=== PATIENT | male | born 1975 | race Caucasian/White ===

== ENCOUNTER 2020-05-22 15:11 | Inpatient (IN) | payer OTHER ==
[2020-05-22 16:22] VITALS: BMI 17.7
[2020-05-22] MEDS ORDERED: MAG HYDROX/AL HYDROX/SIMETH 30 ML UNIT-DOSE CUP PO PRN (16:48)
[2020-05-22] MEDS ORDERED: ACETAMINOPHEN 325 MG TABLET (FP) PO PRN ×2 (16:48)
[2020-05-22] MEDS ORDERED: ONDANSETRON *ODT* 4 MG TABLET SL PRN (16:48)
[2020-05-22] MEDS ORDERED: BISMUTH SUBSALICYLATE 524 MG/30 ML UD PO PRN (16:48)
[2020-05-22] MEDS ORDERED: MENTHOL/PHENOL 1 EACH UD MM PRN (16:48)
[2020-05-22] MEDS ORDERED: MAGNESIUM HYDROX 2400MG/30ML ORAL SUSPENSION 30 ML CUP PO PRN (16:48)
[2020-05-22] MEDS ORDERED: MAGNESIUM CITRATE 300 ML BOTTLE PO PRN (16:48)
[2020-05-22] MEDS ORDERED: IBUPROFEN 400 MG TABLET (FP) PO PRN (16:48)
[2020-05-22] MEDS ORDERED: chlordiazePOXIDE HCL 25 MG CAPSULE PO PRN (16:48)
[2020-05-22] MEDS: chlordiazePOXIDE HCL 25 MG CAPSULE PO SCH ×2 (18:15→22:21)
[2020-05-22] MEDS: hydrOXYzine PAMOATE 25 MG CAPSULE (FP) PO SCH ×2 (18:15→22:21)
[2020-05-22] MEDS: MELATONIN 5 MG TABLETS PO SCH (22:21)
[2020-05-22] MEDS: THIAMINE HCL 100 MG TABLET (FP) PO SCH (22:21)
[2020-05-23] MEDS: hydrOXYzine PAMOATE 25 MG CAPSULE (FP) PO SCH ×5 (05:53→21:59)
[2020-05-23] MEDS: chlordiazePOXIDE HCL 25 MG CAPSULE PO SCH ×4 (05:53→21:59)
[2020-05-23] MEDS: METHOCARBAMOL 500 MG TABLET PO PRN ×2 (07:41→22:00)
[2020-05-23] MEDS ORDERED: cloNIDine HCL 0.1 MG TABLET PO PRN (08:20)
[2020-05-23] MEDS ORDERED: METHADONE HCL 10 MG TABLET (FOR DETOX USE ONLY) PO ONE (09:00)
[2020-05-23] MEDS: PRENATAL VITAMINS W/ FOLIC ACID TABLET (FP) PO SCH (10:08)
[2020-05-23 10:49] LABS: HEMATOCRIT 42.6 % (35.4-49); HEMOGLOBIN 14.2 GM/dL (11.7-16.9); MCH 31.2 pg (25.7-33.7); MCHC 33.4 g/dl (32.0-35.9); MEAN CELL VOLUME 93.5 fl (80-96); MEAN PLT VOLUME 9.7 fl (7.5-11.1); PLATELET COUNT 143 K/MM3 (134-434); RBC 4.55 M/mm3 (4.00-5.60); RDW 13.4 % (11.9-15.9); WHITE BLOOD COUNT 5.3 K/mm3 (4.0-10.0)
[2020-05-23 10:52] LABS: POTASSIUM 3.7 mmol/L (3.5-5.1)
[2020-05-23 11:04] LABS: CALCIUM 8.4 mg/dL (8.5-10.1)
[2020-05-23 11:05] LABS: BLOOD UREA NITROGEN 8.1 mg/dL (7-18)
[2020-05-23 11:08] LABS: CREATININE 0.8 mg/dL (0.55-1.3)
[2020-05-23 11:09] LABS: BILIRUBIN,TOTAL 1.6 mg/dL (0.2-1)
[2020-05-23 11:10] LABS: TOT PROT 6.3 g/dl (6.4-8.2)
[2020-05-23] MEDS: THIAMINE HCL 100 MG TABLET (FP) PO SCH (22:00)
[2020-05-23] MEDS: MELATONIN 5 MG TABLETS PO SCH (22:00)
[2020-05-24] MEDS: chlordiazePOXIDE HCL 25 MG CAPSULE PO SCH ×4 (05:58→22:21)
[2020-05-24] MEDS: hydrOXYzine PAMOATE 25 MG CAPSULE (FP) PO SCH ×5 (05:59→22:21)
[2020-05-24] MEDS: METHOCARBAMOL 500 MG TABLET PO PRN ×2 (05:59→17:20)
[2020-05-24] MEDS ORDERED: METHADONE (DETOX) 20 MG, METHADONE (DETOX) 5 MG PO ONE (10:00)
[2020-05-24] MEDS ORDERED: METHADONE HCL 10 MG TABLET (FOR DETOX USE ONLY) ONE (10:01)
[2020-05-24] MEDS ORDERED: METHADONE HCL 5 MG TABLET (FOR DETOX USE ONLY) ONE (10:01)
[2020-05-24] MEDS: PRENATAL VITAMINS W/ FOLIC ACID TABLET (FP) PO SCH (10:18)
[2020-05-24] MEDS: THIAMINE HCL 100 MG TABLET (FP) PO SCH (22:21)
[2020-05-24] MEDS: MELATONIN 5 MG TABLETS PO SCH (22:21)
[2020-05-25] MEDS ORDERED: chlordiazePOXIDE HCL 10 MG CAPSULE PO PRN
[2020-05-25] MEDS: chlordiazePOXIDE HCL 10 MG CAPSULE PO SCH ×4 (06:13→22:15)
[2020-05-25] MEDS: hydrOXYzine PAMOATE 25 MG CAPSULE (FP) PO SCH ×5 (06:14→22:14)
[2020-05-25] MEDS: METHOCARBAMOL 500 MG TABLET PO PRN ×2 (06:15→14:26)
[2020-05-25 07:08] LABS: SARS-CoV-2 NAA Not Detected (Not Detected)
[2020-05-25] MEDS ORDERED: METHADONE HCL 10 MG TABLET (FOR DETOX USE ONLY) PO ONE (10:00)
[2020-05-25] MEDS: PRENATAL VITAMINS W/ FOLIC ACID TABLET (FP) PO SCH (10:09)
[2020-05-25] MEDS: THIAMINE HCL 100 MG TABLET (FP) PO SCH (22:14)
[2020-05-25] MEDS: MELATONIN 5 MG TABLETS PO SCH (22:14)
[2020-05-26] MEDS ORDERED: chlordiazePOXIDE HCL 10 MG CAPSULE PO SCH (05:00)
[2020-05-26] MEDS: hydrOXYzine PAMOATE 25 MG CAPSULE (FP) PO SCH ×3 (06:45→13:34)
[2020-05-26] MEDS ORDERED: METHADONE HCL 5 MG TABLET (FOR DETOX USE ONLY) ONE (08:55)
[2020-05-26] MEDS ORDERED: METHADONE HCL 10 MG TABLET (FOR DETOX USE ONLY) ONE (08:55)
[2020-05-26] MEDS: PRENATAL VITAMINS W/ FOLIC ACID TABLET (FP) PO SCH (09:37)
[2020-05-26] MEDS: METHOCARBAMOL 500 MG TABLET PO PRN (09:39)
[2020-05-26] MEDS ORDERED: METHADONE (DETOX) 10 MG, METHADONE (DETOX) 5 MG PO ONE (10:00)
[2020-05-26 14:02] VITALS: BP 101/71; PULSE 100; TEMP 97.5
[2020-05-27] MEDS ORDERED: chlordiazePOXIDE HCL 10 MG CAPSULE PO ONE (05:00)
[2020-05-27] MEDS ORDERED: METHADONE HCL 10 MG TABLET (FOR DETOX USE ONLY) PO ONE (10:00)
[2020-05-28] MEDS ORDERED: METHADONE HCL 5 MG TABLET (FOR DETOX USE ONLY) PO ONE (06:00)
== END 2020-05-26 14:58 | disposition home or self-care (01) | DRG 773 ==
LOC: YASAS 15:11 → Y3N 17:24
PROVIDERS: ADMIT Allergy & Immunology; ATTEND Allergy & Immunology
PROC: HZ2ZZZZ Detoxification Services for Substance Abuse Treatment (ICD-10-PCS; principal; 2020-05-22)
DX: F11.23 Opioid dependence with withdrawal (principal); F14.20 Cocaine dependence, uncomplicated; F13.20 Sedative, hypnotic or anxiolytic dependence, uncomplicated; F16.20 Hallucinogen dependence, uncomplicated; F17.211 Nicotine dependence, cigarettes, in remission; R63.4 Abnormal weight loss; Z68.1 Body mass index [BMI] 19.9 or less, adult
CPT/HCPCS: 36415; 80053; 85027; 86780; 93005; 93010; C9803; U0003; U0005

== ENCOUNTER 2020-06-18 10:17 | Inpatient (IN) | payer OTHER ==
[2020-06-18 11:35] VITALS: BMI 25.4
[2020-06-18] MEDS ORDERED: chlordiazePOXIDE HCL 25 MG CAPSULE PO PRN (13:21)
[2020-06-18] MEDS ORDERED: ACETAMINOPHEN 325 MG TABLET (FP) PO PRN (13:21)
[2020-06-18] MEDS ORDERED: BISMUTH SUBSALICYLATE 524 MG/30 ML UD PO PRN (13:21)
[2020-06-18] MEDS ORDERED: MAGNESIUM HYDROX 2400MG/30ML ORAL SUSPENSION 30 ML CUP PO PRN (13:21)
[2020-06-18] MEDS ORDERED: ONDANSETRON *ODT* 4 MG TABLET SL PRN (13:21)
[2020-06-18] MEDS ORDERED: cloNIDine HCL 0.1 MG TABLET PO PRN (13:21)
[2020-06-18] MEDS ORDERED: NICOTINE POLACRILEX 2 MG GUM BUC PRN (13:21)
[2020-06-18] MEDS ORDERED: MENTHOL/PHENOL 1 EACH UD MM PRN (13:21)
[2020-06-18] MEDS ORDERED: MAGNESIUM CITRATE 300 ML BOTTLE PO PRN (13:21)
[2020-06-18] MEDS ORDERED: IBUPROFEN 400 MG TABLET (FP) PO PRN (13:21)
[2020-06-18] MEDS ORDERED: MAG HYDROX/AL HYDROX/SIMETH 30 ML UNIT-DOSE CUP PO PRN (13:21)
[2020-06-18] MEDS ORDERED: METHADONE HCL 10 MG TABLET (FOR DETOX USE ONLY) PO ONE (13:45)
[2020-06-18] MEDS: NICOTINE 14 MG/24 HOURS TOPICAL PATCH TD SCH (14:01)
[2020-06-18] MEDS: PRENATAL VITAMINS W/ FOLIC ACID TABLET (FP) PO SCH (14:01)
[2020-06-18] MEDS: hydrOXYzine PAMOATE 25 MG CAPSULE (FP) PO SCH ×3 (14:01→22:40)
[2020-06-18 17:18] LABS: HEMATOCRIT 41.3 % (35.4-49); HEMOGLOBIN 13.9 GM/dL (11.7-16.9); MCH 31.5 pg (25.7-33.7); MCHC 33.6 g/dl (32.0-35.9); MEAN CELL VOLUME 93.8 fl (80-96); MEAN PLT VOLUME 10.1 fl (7.5-11.1); PLATELET COUNT 153 K/MM3 (134-434); RDW 13.1 % (11.9-15.9); WHITE BLOOD COUNT 5.4 K/mm3 (4.0-10.0)
[2020-06-18 17:20] LABS: ALBUMIN 3.5 g/dl (3.4-5.0); BLOOD UREA NITROGEN 12.1 mg/dL (7-18); CALCIUM 8.6 mg/dL (8.5-10.1)
[2020-06-18 17:23] LABS: CREATININE 0.9 mg/dL (0.55-1.3)
[2020-06-18 17:25] LABS: BILIRUBIN,TOTAL 0.7 mg/dL (0.2-1)
[2020-06-18] MEDS: chlordiazePOXIDE HCL 25 MG CAPSULE PO SCH ×2 (17:32→22:40)
[2020-06-18] MEDS: MELATONIN 5 MG TABLETS PO SCH (22:41)
[2020-06-18] MEDS: THIAMINE HCL 100 MG TABLET (FP) PO SCH (22:41)
[2020-06-19] MEDS: hydrOXYzine PAMOATE 25 MG CAPSULE (FP) PO SCH ×5 (06:20→22:49)
[2020-06-19] MEDS: chlordiazePOXIDE HCL 25 MG CAPSULE PO SCH ×4 (06:20→22:49)
[2020-06-19] MEDS: ACETAMINOPHEN 325 MG TABLET (FP) PO PRN (06:30)
[2020-06-19] MEDS ORDERED: METHADONE HCL 5 MG TABLET (FOR DETOX USE ONLY) ONE (09:09)
[2020-06-19] MEDS ORDERED: METHADONE HCL 10 MG TABLET (FOR DETOX USE ONLY) ONE (09:09)
[2020-06-19] MEDS ORDERED: METHADONE (DETOX) 20 MG, METHADONE (DETOX) 5 MG PO ONE (10:00)
[2020-06-19] MEDS: NICOTINE 14 MG/24 HOURS TOPICAL PATCH TD SCH (11:51)
[2020-06-19] MEDS: PRENATAL VITAMINS W/ FOLIC ACID TABLET (FP) PO SCH (11:52)
[2020-06-19] MEDS: GABAPENTIN 400 MG CAPSULE PO SCH ×2 (14:16→22:49)
[2020-06-19] MEDS: ZIPRASIDONE 20 MG CAPSULE PO SCH ×2 (14:16→22:47)
[2020-06-19] MEDS: THIAMINE HCL 100 MG TABLET (FP) PO SCH (22:47)
[2020-06-19] MEDS: MELATONIN 5 MG TABLETS PO SCH (22:48)
[2020-06-20] MEDS: chlordiazePOXIDE HCL 25 MG CAPSULE PO SCH ×4 (06:02→22:48)
[2020-06-20] MEDS: hydrOXYzine PAMOATE 25 MG CAPSULE (FP) PO SCH ×5 (06:02→22:48)
[2020-06-20] MEDS: GABAPENTIN 400 MG CAPSULE PO SCH ×3 (06:02→22:48)
[2020-06-20] MEDS: ACETAMINOPHEN 325 MG TABLET (FP) PO PRN (06:20)
[2020-06-20] MEDS ORDERED: METHADONE HCL 10 MG TABLET (FOR DETOX USE ONLY) PO ONE (10:00)
[2020-06-20] MEDS: PRENATAL VITAMINS W/ FOLIC ACID TABLET (FP) PO SCH (10:33)
[2020-06-20] MEDS: ZIPRASIDONE 20 MG CAPSULE PO SCH ×2 (10:33→22:47)
[2020-06-20] MEDS: NICOTINE 14 MG/24 HOURS TOPICAL PATCH TD SCH (10:39)
[2020-06-20] MEDS: MELATONIN 5 MG TABLETS PO SCH (22:48)
[2020-06-20] MEDS: THIAMINE HCL 100 MG TABLET (FP) PO SCH (22:48)
[2020-06-21] MEDS ORDERED: chlordiazePOXIDE HCL 10 MG CAPSULE PO PRN
[2020-06-21 06:09] LABS: SARS-CoV-2 NAA Not Detected (Not Detected)
[2020-06-21] MEDS: hydrOXYzine PAMOATE 25 MG CAPSULE (FP) PO SCH ×5 (06:11→21:44)
[2020-06-21] MEDS: GABAPENTIN 400 MG CAPSULE PO SCH ×3 (06:11→21:44)
[2020-06-21] MEDS: chlordiazePOXIDE HCL 10 MG CAPSULE PO SCH ×4 (06:12→22:29)
[2020-06-21] MEDS ORDERED: METHADONE HCL 5 MG TABLET (FOR DETOX USE ONLY) ONE (08:50)
[2020-06-21] MEDS ORDERED: METHADONE HCL 10 MG TABLET (FOR DETOX USE ONLY) ONE (08:51)
[2020-06-21] MEDS ORDERED: METHADONE (DETOX) 10 MG, METHADONE (DETOX) 5 MG PO ONE (10:00)
[2020-06-21] MEDS: ZIPRASIDONE 20 MG CAPSULE PO SCH ×2 (10:01→21:44)
[2020-06-21] MEDS: PRENATAL VITAMINS W/ FOLIC ACID TABLET (FP) PO SCH (10:02)
[2020-06-21] MEDS: NICOTINE 14 MG/24 HOURS TOPICAL PATCH TD SCH (10:02)
[2020-06-21] MEDS: MELATONIN 5 MG TABLETS PO SCH (21:44)
[2020-06-21] MEDS: THIAMINE HCL 100 MG TABLET (FP) PO SCH (21:44)
[2020-06-22] MEDS: chlordiazePOXIDE HCL 10 MG CAPSULE PO SCH ×2 (06:52→17:32)
[2020-06-22] MEDS: hydrOXYzine PAMOATE 25 MG CAPSULE (FP) PO SCH ×5 (06:53→23:15)
[2020-06-22] MEDS: GABAPENTIN 400 MG CAPSULE PO SCH ×3 (06:53→23:15)
[2020-06-22] MEDS ORDERED: METHADONE HCL 10 MG TABLET (FOR DETOX USE ONLY) PO ONE (10:00)
[2020-06-22] MEDS: NICOTINE 14 MG/24 HOURS TOPICAL PATCH TD SCH (10:45)
[2020-06-22] MEDS: PRENATAL VITAMINS W/ FOLIC ACID TABLET (FP) PO SCH (10:46)
[2020-06-22] MEDS: ZIPRASIDONE 20 MG CAPSULE PO SCH ×2 (10:46→23:24)
[2020-06-22] MEDS: METHOCARBAMOL 500 MG TABLET PO PRN (10:52)
[2020-06-22] MEDS: MELATONIN 5 MG TABLETS PO SCH (23:16)
[2020-06-22] MEDS: THIAMINE HCL 100 MG TABLET (FP) PO SCH (23:16)
[2020-06-23] MEDS ORDERED: chlordiazePOXIDE HCL 10 MG CAPSULE PO ONE (05:00)
[2020-06-23] MEDS ORDERED: METHADONE HCL 5 MG TABLET (FOR DETOX USE ONLY) PO ONE (06:00)
[2020-06-23] MEDS: GABAPENTIN 400 MG CAPSULE PO SCH ×3 (06:43→23:18)
[2020-06-23] MEDS: hydrOXYzine PAMOATE 25 MG CAPSULE (FP) PO SCH ×5 (06:48→23:18)
[2020-06-23] MEDS: METHOCARBAMOL 500 MG TABLET PO PRN (07:21)
[2020-06-23] MEDS: ZIPRASIDONE 20 MG CAPSULE PO SCH ×2 (10:37→23:19)
[2020-06-23] MEDS: PRENATAL VITAMINS W/ FOLIC ACID TABLET (FP) PO SCH (10:38)
[2020-06-23] MEDS: NICOTINE 14 MG/24 HOURS TOPICAL PATCH TD SCH (10:38)
[2020-06-23] MEDS: THIAMINE HCL 100 MG TABLET (FP) PO SCH (23:18)
[2020-06-23] MEDS: MELATONIN 5 MG TABLETS PO SCH (23:18)
[2020-06-24] MEDS: GABAPENTIN 400 MG CAPSULE PO SCH ×3 (07:39→22:53)
[2020-06-24] MEDS: hydrOXYzine PAMOATE 25 MG CAPSULE (FP) PO SCH ×2 (07:39→10:36)
[2020-06-24] MEDS: METHOCARBAMOL 500 MG TABLET PO PRN (07:43)
[2020-06-24] MEDS: ZIPRASIDONE 20 MG CAPSULE PO SCH ×2 (10:36→22:53)
[2020-06-24] MEDS: NICOTINE 14 MG/24 HOURS TOPICAL PATCH TD SCH (10:36)
[2020-06-24] MEDS: PRENATAL VITAMINS W/ FOLIC ACID TABLET (FP) PO SCH (10:36)
[2020-06-24] MEDS: MELATONIN 5 MG TABLETS PO SCH (22:53)
[2020-06-24] MEDS: THIAMINE HCL 100 MG TABLET (FP) PO SCH (22:53)
[2020-06-25] MEDS: GABAPENTIN 400 MG CAPSULE PO SCH (06:08)
[2020-06-25] MEDS: NICOTINE 14 MG/24 HOURS TOPICAL PATCH TD SCH (11:24)
[2020-06-25] MEDS: PRENATAL VITAMINS W/ FOLIC ACID TABLET (FP) PO SCH (11:24)
[2020-06-25] MEDS: ZIPRASIDONE 20 MG CAPSULE PO SCH (11:24)
[2020-06-25 13:25] VITALS: BP 143/97; PULSE 90; TEMP 98.1
== END 2020-06-25 13:11 | disposition home or self-care (01) | DRG 773 ==
LOC: YASAS 10:17 → Y6N 13:04
PROVIDERS: ADMIT Allergy & Immunology; ATTEND Allergy & Immunology
PROC: HZ2ZZZZ Detoxification Services for Substance Abuse Treatment (ICD-10-PCS; principal; 2020-06-18)
DX: F11.23 Opioid dependence with withdrawal (principal); F10.230 Alcohol dependence with withdrawal, uncomplicated; F13.20 Sedative, hypnotic or anxiolytic dependence, uncomplicated; F14.20 Cocaine dependence, uncomplicated; F12.20 Cannabis dependence, uncomplicated; F17.210 Nicotine dependence, cigarettes, uncomplicated; F19.24 Other psychoactive substance dependence with psychoactive substance-induced mood disorder; F31.9 Bipolar disorder, unspecified; F43.10 Post-traumatic stress disorder, unspecified; U07.1 COVID-19; Z59.0 Homelessness; Z91.011 Allergy to milk products
CPT/HCPCS: 36415; 80053; 85027; 86780; C9803; U0003; U0005

== ENCOUNTER 2020-09-09 08:47 | Inpatient (IN) | payer OTHER ==
[2020-09-09 10:45] VITALS: BMI 27.1
[2020-09-09] MEDS ORDERED: ACETAMINOPHEN 325 MG TABLET (FP) PO PRN ×2 (10:48)
[2020-09-09] MEDS ORDERED: ONDANSETRON *ODT* 4 MG TABLET SL PRN (10:48)
[2020-09-09] MEDS ORDERED: METHOCARBAMOL 500 MG TABLET PO PRN (10:48)
[2020-09-09] MEDS ORDERED: BISMUTH SUBSALICYLATE 524 MG/30 ML PO PRN (10:48)
[2020-09-09] MEDS ORDERED: MAG HYDROX/AL HYDROX/SIMETH 30 ML UNIT-DOSE CUP PO PRN (10:48)
[2020-09-09] MEDS ORDERED: MAGNESIUM CITRATE 300 ML BOTTLE PO PRN (10:48)
[2020-09-09] MEDS ORDERED: IBUPROFEN 400 MG TABLET (FP) PO PRN (10:48)
[2020-09-09] MEDS ORDERED: MAGNESIUM HYDROX 2400MG/30ML ORAL SUSPENSION 30 ML CUP PO PRN (10:48)
[2020-09-09] MEDS ORDERED: MENTHOL/PHENOL 1 EACH UD MM PRN (10:48)
[2020-09-09] MEDS ORDERED: diazePAM 5 MG TABLET PO PRN (10:50)
[2020-09-09] MEDS: MELATONIN 5 MG TABLETS PO SCH (23:04)
[2020-09-09] MEDS: hydrOXYzine PAMOATE 25 MG CAPSULE (FP) PO PRN (23:04)
[2020-09-09] MEDS: THIAMINE HCL 100 MG TABLET (FP) PO SCH (23:04)
[2020-09-10] MEDS: BACITRACIN 0.9 GM PACKET TP SCH ×3 (00:07→21:03)
[2020-09-10] MEDS ORDERED: methaDONE HCL 40 MG DISPERSABLE TABLET ONE (09:19)
[2020-09-10] MEDS ORDERED: methaDONE HCL 10 MG TABLET ONE (09:19)
[2020-09-10] MEDS ORDERED: methaDONE 40 MG, methaDONE 30 MG PO ONE (10:00)
[2020-09-10] MEDS ORDERED: methaDONE HCL 10 MG TABLET PO ONE (10:00)
[2020-09-10] MEDS: PRENATAL VITAMINS W/ FOLIC ACID TABLET (FP) PO SCH (10:13)
[2020-09-10] MEDS: diazePAM 5 MG TABLET PO SCH ×3 (10:13→22:50)
[2020-09-10 10:19] LABS: HEMATOCRIT 39.6 % (35.4-49); HEMOGLOBIN 13.4 GM/dL (11.7-16.9); MCH 30.5 pg (25.7-33.7); MCHC 33.8 g/dl (32.0-35.9); MEAN CELL VOLUME 90.1 fl (80-96); MEAN PLT VOLUME 9.2 fl (7.5-11.1); PLATELET COUNT 108 10^3/uL (134-434); RDW 14.8 % (11.9-15.9); WHITE BLOOD COUNT 3.5 K/mm3 (4.0-10.0)
[2020-09-10 10:23] LABS: CALCIUM 8.5 mg/dL (8.5-10.1)
[2020-09-10 10:24] LABS: ALBUMIN 3.2 g/dl (3.4-5.0); BLOOD UREA NITROGEN 17.3 mg/dL (7-18)
[2020-09-10 10:29] LABS: BILIRUBIN,TOTAL 0.7 mg/dL (0.2-1); TOT PROT 6.4 g/dl (6.4-8.2)
[2020-09-10] MEDS: ZIPRASIDONE 40 MG CAPSULE PO SCH ×2 (11:25→17:46)
[2020-09-10] MEDS: diazePAM 5 MG TABLET PO PRN ×2 (13:46→21:02)
[2020-09-10] MEDS: GABAPENTIN 400 MG CAPSULE PO SCH ×2 (13:46→21:02)
[2020-09-10] MEDS: hydrOXYzine PAMOATE 25 MG CAPSULE (FP) PO PRN (21:02)
[2020-09-10] MEDS: THIAMINE HCL 100 MG TABLET (FP) PO SCH (21:03)
[2020-09-10] MEDS: MELATONIN 5 MG TABLETS PO SCH (22:50)
[2020-09-11] MEDS: diazePAM 5 MG TABLET PO PRN (03:19)
[2020-09-11] MEDS ORDERED: methaDONE HCL 10 MG TABLET ONE (04:06)
[2020-09-11] MEDS ORDERED: methaDONE HCL 40 MG DISPERSABLE TABLET ONE (04:06)
[2020-09-11] MEDS: methaDONE 40 MG, methaDONE 30 MG PO SCH (05:53)
[2020-09-11] MEDS: GABAPENTIN 400 MG CAPSULE PO SCH ×2 (05:55→14:52)
[2020-09-11] MEDS ORDERED: methaDONE HCL 10 MG TABLET PO SCH (06:00)
[2020-09-11] MEDS ORDERED: diazePAM 5 MG TABLET PO SCH (06:00)
[2020-09-11] MEDS: ZIPRASIDONE 40 MG CAPSULE PO SCH ×2 (07:09→17:06)
[2020-09-11] MEDS: PRENATAL VITAMINS W/ FOLIC ACID TABLET (FP) PO SCH (10:36)
[2020-09-11] MEDS: BACITRACIN 0.9 GM PACKET TP SCH ×2 (10:37→22:24)
[2020-09-11] MEDS: diazePAM 5 MG TABLET PO SCH ×2 (15:19→22:25)
[2020-09-11] MEDS: THIAMINE HCL 100 MG TABLET (FP) PO SCH (22:24)
[2020-09-11] MEDS: MELATONIN 5 MG TABLETS PO SCH (22:24)
[2020-09-12] MEDS ORDERED: methaDONE HCL 40 MG DISPERSABLE TABLET ONE (04:12)
[2020-09-12] MEDS ORDERED: methaDONE HCL 10 MG TABLET ONE (04:12)
[2020-09-12] MEDS ORDERED: diazePAM 5 MG TABLET PO SCH (06:00)
[2020-09-12] MEDS: methaDONE 40 MG, methaDONE 30 MG PO SCH (06:07)
[2020-09-12] MEDS: diazePAM 5 MG TABLET PO SCH ×2 (06:07→17:51)
[2020-09-12] MEDS: GABAPENTIN 400 MG CAPSULE PO SCH ×3 (06:08→22:24)
[2020-09-12] MEDS ORDERED: GABAPENTIN 400 MG CAPSULE PO SCH (08:00)
[2020-09-12] MEDS ORDERED: hydrOXYzine PAMOATE 50 MG CAPSULE (FP) PO ONE (09:30)
[2020-09-12] MEDS: ZIPRASIDONE 40 MG CAPSULE PO SCH ×2 (09:40→17:51)
[2020-09-12] MEDS: BACITRACIN 0.9 GM PACKET TP SCH ×2 (09:41→22:24)
[2020-09-12] MEDS: PRENATAL VITAMINS W/ FOLIC ACID TABLET (FP) PO SCH (09:42)
[2020-09-12] MEDS: THIAMINE HCL 100 MG TABLET (FP) PO SCH (22:24)
[2020-09-12] MEDS: MELATONIN 5 MG TABLETS PO SCH (22:24)
[2020-09-13] MEDS ORDERED: methaDONE HCL 10 MG TABLET ONE (04:09)
[2020-09-13] MEDS ORDERED: methaDONE HCL 40 MG DISPERSABLE TABLET ONE (04:10)
[2020-09-13] MEDS ORDERED: diazePAM 5 MG TABLET PO ONE ×2 (06:00)
[2020-09-13] MEDS: GABAPENTIN 400 MG CAPSULE PO SCH (06:16)
[2020-09-13] MEDS: methaDONE 40 MG, methaDONE 30 MG PO SCH (06:16)
[2020-09-13] MEDS: BACITRACIN 0.9 GM PACKET TP SCH (09:06)
[2020-09-13] MEDS: ZIPRASIDONE 40 MG CAPSULE PO SCH (09:06)
[2020-09-13] MEDS: PRENATAL VITAMINS W/ FOLIC ACID TABLET (FP) PO SCH (09:06)
[2020-09-13 09:11] VITALS: BP 115/55; PULSE 59; TEMP 98.4
== END 2020-09-13 12:27 | disposition other institution (70) | DRG 773 ==
LOC: YASAS 08:47 → Y6N 12:56 → UNDOADMIN 12:56
PROVIDERS: ADMIT Allergy & Immunology; ATTEND Allergy & Immunology
PROC: HZ2ZZZZ Detoxification Services for Substance Abuse Treatment (ICD-10-PCS; principal; 2020-09-09)
DX: F10.230 Alcohol dependence with withdrawal, uncomplicated (principal); F11.20 Opioid dependence, uncomplicated; F14.20 Cocaine dependence, uncomplicated; F12.20 Cannabis dependence, uncomplicated; F17.213 Nicotine dependence, cigarettes, with withdrawal; F41.9 Anxiety disorder, unspecified; F43.10 Post-traumatic stress disorder, unspecified; B18.2 Chronic viral hepatitis C; Z87.891 Personal history of nicotine dependence; Z86.59 Personal history of other mental and behavioral disorders
CPT/HCPCS: 36415; 73630-TC-LT; 80053; 85027; 86780; C9803; U0003; U0005

== ENCOUNTER 2020-09-13 11:04 | Inpatient (IN) | payer OTHER ==
[2020-09-13] MEDS ORDERED: MAG HYDROX/AL HYDROX/SIMETH 30 ML UNIT-DOSE CUP PO PRN (12:10)
[2020-09-13] MEDS ORDERED: MAGNESIUM CITRATE 300 ML BOTTLE PO PRN (12:10)
[2020-09-13] MEDS ORDERED: MENTHOL/PHENOL 1 EACH UD MM PRN (12:10)
[2020-09-13] MEDS ORDERED: MAGNESIUM HYDROX 2400MG/30ML ORAL SUSPENSION 30 ML CUP PO PRN (12:10)
[2020-09-13] MEDS ORDERED: IBUPROFEN 400 MG TABLET (FP) PO PRN (12:10)
[2020-09-13] MEDS ORDERED: P-EPHED 60MG/TRIPROLIDI 2.5MG TABLET PO PRN (12:10)
[2020-09-13] MEDS ORDERED: LOPERAMIDE HCL 2 MG CAPSULE PO PRN (12:10)
[2020-09-13] MEDS ORDERED: guaiFENesin 200 MG/10 ML 10 ML UNIT-DOSE CUPS PO PRN (12:10)
[2020-09-13] MEDS ORDERED: GABAPENTIN 400 MG CAPSULE PO SCH (14:00)
[2020-09-13] MEDS ORDERED: ZIPRASIDONE 40 MG CAPSULE PO SCH ×2 (17:30)
[2020-09-13] MEDS: GABAPENTIN 100 MG CAPSULE PO SCH (22:43)
[2020-09-13] MEDS: THIAMINE HCL 100 MG TABLET (FP) PO SCH (22:44)
[2020-09-13] MEDS: MELATONIN 5 MG TABLETS PO SCH (22:44)
[2020-09-14] MEDS: ACETAMINOPHEN 325 MG TABLET (FP) PO PRN (03:29)
[2020-09-14] MEDS ORDERED: methaDONE HCL 10 MG TABLET ONE (04:04)
[2020-09-14] MEDS ORDERED: methaDONE HCL 40 MG DISPERSABLE TABLET ONE (04:04)
[2020-09-14] MEDS ORDERED: methaDONE HCL 10 MG TABLET PO SCH (06:00)
[2020-09-14] MEDS: methaDONE 40 MG, methaDONE 30 MG PO SCH (06:08)
[2020-09-14] MEDS: GABAPENTIN 100 MG CAPSULE PO SCH (07:08)
[2020-09-14] MEDS: NICOTINE POLACRILEX 2 MG GUM BUC PRN ×2 (07:10→10:20)
[2020-09-14] MEDS: NICOTINE 7 MG/24 HOURS TOPICAL PATCH TD SCH (10:19)
[2020-09-14] MEDS: PRENATAL VITAMINS W/ FOLIC ACID TABLET (FP) PO SCH (10:20)
[2020-09-14 11:44] LABS: HIV INTERPRETATION NEGATIVE (NEGATIVE)
[2020-09-14] MEDS: ZIPRASIDONE 40 MG CAPSULE PO SCH (14:26)
[2020-09-14] MEDS: GABAPENTIN 100 MG CAPSULE PO PRN (17:31)
[2020-09-14] MEDS: THIAMINE HCL 100 MG TABLET (FP) PO SCH (22:08)
[2020-09-15] MEDS ORDERED: methaDONE HCL 40 MG DISPERSABLE TABLET ONE (05:49)
[2020-09-15] MEDS ORDERED: methaDONE HCL 10 MG TABLET ONE (05:49)
[2020-09-15] MEDS: methaDONE 40 MG, methaDONE 30 MG PO SCH (06:02)
[2020-09-15] MEDS: NICOTINE 7 MG/24 HOURS TOPICAL PATCH TD SCH (09:48)
[2020-09-15] MEDS: PRENATAL VITAMINS W/ FOLIC ACID TABLET (FP) PO SCH (09:49)
[2020-09-15] MEDS: GABAPENTIN 100 MG CAPSULE PO PRN ×2 (09:50→19:32)
[2020-09-15] MEDS: NICOTINE POLACRILEX 2 MG GUM BUC PRN (09:51)
[2020-09-15] MEDS ORDERED: PT OWN MED DRAWER 7, Y5N ONE (10:03)
[2020-09-15] MEDS ORDERED: BISACODYL 10 MG SUPP.RECT PR ONE (11:24)
[2020-09-15] MEDS: ZIPRASIDONE 40 MG CAPSULE PO SCH (11:49)
[2020-09-15] MEDS ORDERED: ZIPRASIDONE 40 MG CAPSULE PO SCH (12:30)
[2020-09-15] MEDS: hydrOXYzine PAMOATE 25 MG CAPSULE (FP) PO PRN ×2 (14:45→22:02)
[2020-09-15] MEDS: THIAMINE HCL 100 MG TABLET (FP) PO SCH (22:03)
[2020-09-16] MEDS ORDERED: methaDONE HCL 10 MG TABLET ONE (06:12)
[2020-09-16] MEDS ORDERED: methaDONE HCL 40 MG DISPERSABLE TABLET ONE (06:13)
[2020-09-16] MEDS: methaDONE 40 MG, methaDONE 30 MG PO SCH (06:13)
[2020-09-16] MEDS: NICOTINE 7 MG/24 HOURS TOPICAL PATCH TD SCH (10:05)
[2020-09-16] MEDS: PRENATAL VITAMINS W/ FOLIC ACID TABLET (FP) PO SCH (10:05)
[2020-09-16] MEDS: hydrOXYzine PAMOATE 25 MG CAPSULE (FP) PO PRN ×2 (10:06→21:43)
[2020-09-16] MEDS: ZIPRASIDONE 40 MG CAPSULE PO SCH (11:41)
[2020-09-16] MEDS ORDERED: MASKS NR ONE (15:10)
[2020-09-16] MEDS: GABAPENTIN 100 MG CAPSULE PO PRN (17:13)
[2020-09-16] MEDS: THIAMINE HCL 100 MG TABLET (FP) PO SCH (21:43)
[2020-09-17] MEDS ORDERED: methaDONE HCL 10 MG TABLET ONE (03:33)
[2020-09-17] MEDS ORDERED: methaDONE HCL 40 MG DISPERSABLE TABLET ONE (03:33)
[2020-09-17] MEDS: methaDONE 40 MG, methaDONE 30 MG PO SCH (06:04)
[2020-09-17] MEDS ORDERED: PT OWN MED DRAWER 7, Y5N ONE (09:03)
[2020-09-17] MEDS: NICOTINE 7 MG/24 HOURS TOPICAL PATCH TD SCH (09:55)
[2020-09-17] MEDS: PRENATAL VITAMINS W/ FOLIC ACID TABLET (FP) PO SCH (09:55)
[2020-09-17] MEDS: GABAPENTIN 100 MG CAPSULE PO PRN ×2 (09:56→21:14)
[2020-09-17] MEDS ORDERED: MELATONIN 5 MG TABLETS PO PRN (11:28)
[2020-09-17] MEDS: ZIPRASIDONE 40 MG CAPSULE PO SCH (12:30)
[2020-09-17] MEDS: THIAMINE HCL 100 MG TABLET (FP) PO SCH (21:14)
[2020-09-17] MEDS: hydrOXYzine PAMOATE 25 MG CAPSULE (FP) PO PRN (21:16)
[2020-09-18] MEDS ORDERED: methaDONE HCL 10 MG TABLET ONE (03:59)
[2020-09-18] MEDS ORDERED: methaDONE HCL 40 MG DISPERSABLE TABLET ONE (03:59)
[2020-09-18] MEDS: methaDONE 40 MG, methaDONE 30 MG PO SCH (06:10)
[2020-09-18] MEDS: NICOTINE 7 MG/24 HOURS TOPICAL PATCH TD SCH (09:57)
[2020-09-18] MEDS: PRENATAL VITAMINS W/ FOLIC ACID TABLET (FP) PO SCH (09:57)
[2020-09-18] MEDS ORDERED: BENZTROPINE MESYLATE 0.5 MG TABLET (FP) PO SCH (10:00)
[2020-09-18] MEDS: NICOTINE POLACRILEX 2 MG GUM BUC PRN (10:00)
[2020-09-18] MEDS: GABAPENTIN 100 MG CAPSULE PO PRN (10:00)
[2020-09-18] MEDS: BENZTROPINE MESYLATE 1 MG TABLET PO SCH ×2 (12:26→21:49)
[2020-09-18] MEDS: ZIPRASIDONE 40 MG CAPSULE PO SCH (12:26)
[2020-09-18] MEDS: THIAMINE HCL 100 MG TABLET (FP) PO SCH (21:47)
[2020-09-18] MEDS: SUVOREXANT 10 MG TABLET PO PRN (21:48)
[2020-09-19] MEDS ORDERED: methaDONE HCL 10 MG TABLET ONE (03:22)
[2020-09-19] MEDS ORDERED: methaDONE HCL 40 MG DISPERSABLE TABLET ONE (03:23)
[2020-09-19] MEDS: methaDONE 40 MG, methaDONE 30 MG PO SCH (06:16)
[2020-09-19 08:07] LABS: URINE APPEARANCE CLEAR; URINE BILIRUBIN NEGATIVE (NEGATIVE); URINE COLOR YELLOW; URINE GLUCOSE (UA) NEGATIVE (NEGATIVE); URINE KETONE NEGATIVE (NEGATIVE); URINE LEUK ESTERASE NEGATIVE (NEGATIVE); URINE NITRITE NEGATIVE (NEGATIVE); URINE PROTEIN NEGATIVE (NEGATIVE)
[2020-09-19] MEDS: GABAPENTIN 100 MG CAPSULE PO PRN (09:49)
[2020-09-19] MEDS: PRENATAL VITAMINS W/ FOLIC ACID TABLET (FP) PO SCH (09:49)
[2020-09-19] MEDS: BENZTROPINE MESYLATE 1 MG TABLET PO SCH ×2 (09:50→21:13)
[2020-09-19] MEDS: NICOTINE 7 MG/24 HOURS TOPICAL PATCH TD SCH (09:50)
[2020-09-19] MEDS ORDERED: PT OWN MED DRAWER 7, Y5N ONE ×4 (12:01→13:48)
[2020-09-19] MEDS: ZIPRASIDONE 40 MG CAPSULE PO SCH (13:30)
[2020-09-19] MEDS: THIAMINE HCL 100 MG TABLET (FP) PO SCH (21:12)
[2020-09-19] MEDS: SUVOREXANT 10 MG TABLET PO PRN (21:13)
[2020-09-20] MEDS ORDERED: methaDONE HCL 40 MG DISPERSABLE TABLET ONE (06:14)
[2020-09-20] MEDS ORDERED: methaDONE HCL 10 MG TABLET ONE (06:14)
[2020-09-20] MEDS: methaDONE 40 MG, methaDONE 30 MG PO SCH (06:15)
[2020-09-20] MEDS: BENZTROPINE MESYLATE 1 MG TABLET PO SCH ×2 (09:33→21:48)
[2020-09-20] MEDS: PRENATAL VITAMINS W/ FOLIC ACID TABLET (FP) PO SCH (09:34)
[2020-09-20] MEDS: NICOTINE 7 MG/24 HOURS TOPICAL PATCH TD SCH (09:34)
[2020-09-20] MEDS: GABAPENTIN 100 MG CAPSULE PO PRN (09:34)
[2020-09-20] MEDS: ZIPRASIDONE 40 MG CAPSULE PO SCH (13:12)
[2020-09-20] MEDS: MELATONIN 5 MG TABLETS PO SCH (21:49)
[2020-09-20] MEDS: THIAMINE HCL 100 MG TABLET (FP) PO SCH (21:49)
[2020-09-20] MEDS: hydrOXYzine PAMOATE 25 MG CAPSULE (FP) PO PRN (21:50)
[2020-09-20] MEDS: SUVOREXANT 10 MG TABLET PO PRN (21:51)
[2020-09-21] MEDS: ACETAMINOPHEN 325 MG TABLET (FP) PO PRN (01:21)
[2020-09-21] MEDS ORDERED: methaDONE HCL 10 MG TABLET ONE (04:03)
[2020-09-21] MEDS ORDERED: methaDONE HCL 40 MG DISPERSABLE TABLET ONE (04:04)
[2020-09-21] MEDS: methaDONE 40 MG, methaDONE 30 MG PO SCH (06:03)
[2020-09-21] MEDS ORDERED: GABAPENTIN 100 MG CAPSULE PO PRN (06:50)
[2020-09-21] MEDS: NICOTINE 7 MG/24 HOURS TOPICAL PATCH TD SCH (09:43)
[2020-09-21] MEDS: BENZTROPINE MESYLATE 1 MG TABLET PO SCH ×2 (09:43→22:06)
[2020-09-21] MEDS: PRENATAL VITAMINS W/ FOLIC ACID TABLET (FP) PO SCH (09:44)
[2020-09-21] MEDS: TOLNAFTATE 1% CREAM 15 GM TUBE TP SCH ×2 (12:08→22:05)
[2020-09-21] MEDS: ZIPRASIDONE 40 MG CAPSULE PO SCH (13:08)
[2020-09-21] MEDS: NICOTINE POLACRILEX 2 MG GUM BUC PRN (20:34)
[2020-09-21] MEDS ORDERED: SUVOREXANT 10 MG TABLET PO PRN (22:00)
[2020-09-21] MEDS: SUVOREXANT 15 MG TABLET PO PRN (22:04)
[2020-09-21] MEDS: GABAPENTIN 400 MG CAPSULE PO PRN (22:05)
[2020-09-21] MEDS: THIAMINE HCL 100 MG TABLET (FP) PO SCH (22:06)
[2020-09-21] MEDS: hydrOXYzine PAMOATE 25 MG CAPSULE (FP) PO PRN (22:07)
[2020-09-22] MEDS ORDERED: methaDONE HCL 10 MG TABLET ONE (04:34)
[2020-09-22] MEDS ORDERED: methaDONE HCL 40 MG DISPERSABLE TABLET ONE (04:35)
[2020-09-22] MEDS: methaDONE 40 MG, methaDONE 30 MG PO SCH (06:19)
[2020-09-22] MEDS: BENZTROPINE MESYLATE 1 MG TABLET PO SCH ×2 (09:58→21:55)
[2020-09-22] MEDS: NICOTINE 7 MG/24 HOURS TOPICAL PATCH TD SCH (09:58)
[2020-09-22] MEDS: PRENATAL VITAMINS W/ FOLIC ACID TABLET (FP) PO SCH (09:59)
[2020-09-22] MEDS: TOLNAFTATE 1% CREAM 15 GM TUBE TP SCH ×2 (09:59→21:55)
[2020-09-22] MEDS: GABAPENTIN 400 MG CAPSULE PO PRN ×2 (10:01→21:56)
[2020-09-22] MEDS ORDERED: PT OWN MED DRAWER 7, Y5N ONE (13:37)
[2020-09-22] MEDS: ZIPRASIDONE 40 MG CAPSULE PO SCH (13:41)
[2020-09-22] MEDS: SUVOREXANT 15 MG TABLET PO PRN (21:56)
[2020-09-22] MEDS: THIAMINE HCL 100 MG TABLET (FP) PO SCH (21:56)
[2020-09-23] MEDS ORDERED: methaDONE HCL 40 MG DISPERSABLE TABLET ONE (04:29)
[2020-09-23] MEDS ORDERED: methaDONE HCL 10 MG TABLET ONE (04:29)
[2020-09-23] MEDS: methaDONE 40 MG, methaDONE 30 MG PO SCH (06:20)
[2020-09-23] MEDS: NICOTINE POLACRILEX 2 MG GUM BUC PRN (06:24)
[2020-09-23] MEDS ORDERED: PT OWN MED DRAWER 7, Y5N ONE (08:49)
[2020-09-23] MEDS: NICOTINE 7 MG/24 HOURS TOPICAL PATCH TD SCH (10:10)
[2020-09-23] MEDS: BENZTROPINE MESYLATE 1 MG TABLET PO SCH ×2 (10:10→21:21)
[2020-09-23] MEDS: PRENATAL VITAMINS W/ FOLIC ACID TABLET (FP) PO SCH (10:10)
[2020-09-23] MEDS: hydrOXYzine PAMOATE 25 MG CAPSULE (FP) PO PRN ×2 (10:11→21:23)
[2020-09-23] MEDS: TOLNAFTATE 1% CREAM 15 GM TUBE TP SCH ×2 (10:11→21:23)
[2020-09-23] MEDS: ZIPRASIDONE 40 MG CAPSULE PO SCH (12:30)
[2020-09-23] MEDS: GABAPENTIN 400 MG CAPSULE PO PRN ×2 (12:40→23:41)
[2020-09-23] MEDS: THIAMINE HCL 100 MG TABLET (FP) PO SCH (21:21)
[2020-09-23] MEDS: SUVOREXANT 15 MG TABLET PO PRN (21:22)
[2020-09-24] MEDS ORDERED: methaDONE HCL 10 MG TABLET ONE (04:18)
[2020-09-24] MEDS ORDERED: methaDONE HCL 40 MG DISPERSABLE TABLET ONE (04:18)
[2020-09-24] MEDS: methaDONE 40 MG, methaDONE 30 MG PO SCH (06:27)
[2020-09-24] MEDS ORDERED: PT OWN MED DRAWER 7, Y5N ONE ×2 (08:40→09:01)
[2020-09-24] MEDS: NICOTINE 7 MG/24 HOURS TOPICAL PATCH TD SCH (09:13)
[2020-09-24] MEDS: BENZTROPINE MESYLATE 1 MG TABLET PO SCH ×2 (09:13→21:53)
[2020-09-24] MEDS: PRENATAL VITAMINS W/ FOLIC ACID TABLET (FP) PO SCH (09:13)
[2020-09-24] MEDS: GABAPENTIN 400 MG CAPSULE PO PRN (09:14)
[2020-09-24] MEDS: TOLNAFTATE 1% CREAM 15 GM TUBE TP SCH ×2 (09:15→21:56)
[2020-09-24] MEDS: ZIPRASIDONE 40 MG CAPSULE PO SCH (13:30)
[2020-09-24] MEDS ORDERED: BISACODYL 10 MG SUPP.RECT PR PRN (14:42)
[2020-09-24] MEDS: THIAMINE HCL 100 MG TABLET (FP) PO SCH (21:54)
[2020-09-24] MEDS: hydrOXYzine PAMOATE 25 MG CAPSULE (FP) PO PRN (21:54)
[2020-09-24] MEDS: SUVOREXANT 15 MG TABLET PO PRN (21:55)
[2020-09-25] MEDS ORDERED: methaDONE HCL 10 MG TABLET ONE (03:40)
[2020-09-25] MEDS ORDERED: methaDONE HCL 40 MG DISPERSABLE TABLET ONE (03:40)
[2020-09-25] MEDS: methaDONE 40 MG, methaDONE 30 MG PO SCH (06:22)
[2020-09-25] MEDS: PRENATAL VITAMINS W/ FOLIC ACID TABLET (FP) PO SCH (09:45)
[2020-09-25] MEDS: BENZTROPINE MESYLATE 1 MG TABLET PO SCH ×2 (09:46→21:18)
[2020-09-25] MEDS: TOLNAFTATE 1% CREAM 15 GM TUBE TP SCH ×2 (09:46→21:18)
[2020-09-25] MEDS: GABAPENTIN 400 MG CAPSULE PO PRN (09:48)
[2020-09-25] MEDS: NICOTINE 7 MG/24 HOURS TOPICAL PATCH TD SCH (10:18)
[2020-09-25] MEDS: hydrOXYzine PAMOATE 25 MG CAPSULE (FP) PO PRN (11:46)
[2020-09-25] MEDS ORDERED: PT OWN MED DRAWER 7, Y5N ONE ×2 (11:48→13:16)
[2020-09-25] MEDS: ZIPRASIDONE 40 MG CAPSULE PO SCH (13:17)
[2020-09-25] MEDS: NICOTINE POLACRILEX 2 MG GUM BUC PRN (13:17)
[2020-09-25] MEDS: THIAMINE HCL 100 MG TABLET (FP) PO SCH (21:17)
[2020-09-25] MEDS: SUVOREXANT 15 MG TABLET PO PRN (21:17)
[2020-09-26] MEDS: ACETAMINOPHEN 325 MG TABLET (FP) PO PRN (00:31)
[2020-09-26] MEDS ORDERED: methaDONE HCL 10 MG TABLET ONE (03:57)
[2020-09-26] MEDS ORDERED: methaDONE HCL 40 MG DISPERSABLE TABLET ONE (03:57)
[2020-09-26] MEDS: methaDONE 40 MG, methaDONE 30 MG PO SCH (06:14)
[2020-09-26 07:17] VITALS: BP 91/60; PULSE 61; TEMP 96.9
[2020-09-26] MEDS: BENZTROPINE MESYLATE 1 MG TABLET PO SCH (09:11)
[2020-09-26] MEDS: NICOTINE 7 MG/24 HOURS TOPICAL PATCH TD SCH (09:12)
[2020-09-26] MEDS: TOLNAFTATE 1% CREAM 15 GM TUBE TP SCH (09:12)
[2020-09-26] MEDS: PRENATAL VITAMINS W/ FOLIC ACID TABLET (FP) PO SCH (09:12)
[2020-09-26] MEDS: GABAPENTIN 400 MG CAPSULE PO PRN (09:14)
== END 2020-09-26 09:36 | disposition home or self-care (01) | DRG 772 ==
LOC: YASAS 11:04 → Y3E 11:05
PROVIDERS: ADMIT Allergy & Immunology; ATTEND Allergy & Immunology
PROC: HZ42ZZZ Group Counseling for Substance Abuse Treatment, Cognitive-Behavioral (ICD-10-PCS; principal; 2020-09-13)
DX: F10.20 Alcohol dependence, uncomplicated (principal); F11.20 Opioid dependence, uncomplicated; F14.20 Cocaine dependence, uncomplicated; F12.20 Cannabis dependence, uncomplicated; F17.210 Nicotine dependence, cigarettes, uncomplicated; B18.2 Chronic viral hepatitis C; Z86.69 Personal history of other diseases of the nervous system and sense organs; Z56.0 Unemployment, unspecified
CPT/HCPCS: 36415; 81003; 87389

== ENCOUNTER 2020-10-29 08:20 | Inpatient (IN) | payer OTHER ==
[2020-10-29 08:48] VITALS: BMI 29.0
[2020-10-29] MEDS ORDERED: MENTHOL/PHENOL 1 EACH UD MM PRN (10:27)
[2020-10-29] MEDS ORDERED: IBUPROFEN 400 MG TABLET (FP) PO PRN (10:27)
[2020-10-29] MEDS ORDERED: MAG HYDROX/AL HYDROX/SIMETH 30 ML UNIT-DOSE CUP PO PRN (10:27)
[2020-10-29] MEDS ORDERED: BISMUTH SUBSALICYLATE 524 MG/30 ML PO PRN (10:27)
[2020-10-29] MEDS ORDERED: MAGNESIUM HYDROX 2400MG/30ML ORAL SUSPENSION 30 ML CUP PO PRN (10:27)
[2020-10-29] MEDS ORDERED: LORazepam 1 MG TABLET PO PRN (10:27)
[2020-10-29] MEDS ORDERED: ACETAMINOPHEN 325 MG TABLET (FP) PO PRN ×2 (10:27)
[2020-10-29] MEDS ORDERED: METHOCARBAMOL 500 MG TABLET PO PRN (10:27)
[2020-10-29] MEDS ORDERED: MAGNESIUM CITRATE 300 ML BOTTLE PO PRN (10:27)
[2020-10-29] MEDS ORDERED: ONDANSETRON *ODT* 4 MG TABLET SL PRN (10:27)
[2020-10-29] MEDS ORDERED: LORazepam 1 MG TABLET ONE (12:31)
[2020-10-29] MEDS: hydrOXYzine PAMOATE 25 MG CAPSULE (FP) PO SCH ×3 (14:15→21:53)
[2020-10-29] MEDS: LORazepam 2 MG TABLET PO SCH ×2 (18:43→22:00)
[2020-10-29] MEDS: THIAMINE HCL 100 MG TABLET (FP) PO SCH (21:54)
[2020-10-29] MEDS: MELATONIN 5 MG TABLETS PO SCH (21:55)
[2020-10-30] MEDS: hydrOXYzine PAMOATE 25 MG CAPSULE (FP) PO SCH (06:09)
[2020-10-30] MEDS: LORazepam 2 MG TABLET PO SCH ×4 (06:09→22:26)
[2020-10-30] MEDS ORDERED: methaDONE HCL 10 MG TABLET PO ONE (08:49)
[2020-10-30] MEDS ORDERED: methaDONE 80 MG, methaDONE 10 MG PO ONE (09:15)
[2020-10-30] MEDS ORDERED: methaDONE HCL 40 MG DISPERSABLE TABLET ONE (09:34)
[2020-10-30] MEDS ORDERED: methaDONE HCL 10 MG TABLET ONE (09:34)
[2020-10-30] MEDS: PRENATAL VITAMINS W/ FOLIC ACID TABLET (FP) PO SCH (10:05)
[2020-10-30 10:39] LABS: HEMATOCRIT 38.5 % (35.4-49); HEMOGLOBIN 13.5 GM/dL (11.7-16.9); MCH 32.1 pg (25.7-33.7); MEAN CELL VOLUME 91.9 fl (80-96); MEAN PLT VOLUME 9.6 fl (7.5-11.1); PLATELET COUNT 170 10^3/uL (134-434); RDW 14.4 % (11.9-15.9); WHITE BLOOD COUNT 4.9 K/mm3 (4.0-10.0)
[2020-10-30 10:42] LABS: CALCIUM 8.4 mg/dL (8.5-10.1)
[2020-10-30 10:43] LABS: BILIRUBIN,TOTAL 0.4 mg/dL (0.2-1); TOT PROT 6.6 g/dl (6.4-8.2)
[2020-10-30 10:45] LABS: CREATININE 0.9 mg/dL (0.55-1.3)
[2020-10-30 11:27] LABS: HIV INTERPRETATION NEGATIVE (NEGATIVE)
[2020-10-30] MEDS: MELATONIN 5 MG TABLETS PO SCH (22:26)
[2020-10-30] MEDS: THIAMINE HCL 100 MG TABLET (FP) PO SCH (22:27)
[2020-10-31] MEDS ORDERED: methaDONE HCL 10 MG TABLET ONE (04:11)
[2020-10-31] MEDS ORDERED: methaDONE HCL 40 MG DISPERSABLE TABLET ONE (04:12)
[2020-10-31] MEDS: LORazepam 1 MG TABLET PO SCH ×4 (05:36→22:02)
[2020-10-31] MEDS: methaDONE 80 MG, methaDONE 10 MG PO SCH (05:36)
[2020-10-31] MEDS ORDERED: methaDONE HCL 40 MG DISPERSABLE TABLET PO SCH (06:00)
[2020-10-31] MEDS: PRENATAL VITAMINS W/ FOLIC ACID TABLET (FP) PO SCH (10:16)
[2020-10-31] MEDS: THIAMINE HCL 100 MG TABLET (FP) PO SCH (22:01)
[2020-10-31] MEDS: MELATONIN 5 MG TABLETS PO SCH (22:02)
[2020-10-31] MEDS: hydrOXYzine PAMOATE 25 MG CAPSULE (FP) PO PRN (22:02)
[2020-11-01] MEDS ORDERED: LORazepam 0.5 MG TABLET PO PRN
[2020-11-01] MEDS ORDERED: methaDONE HCL 10 MG TABLET ONE (04:37)
[2020-11-01] MEDS ORDERED: methaDONE HCL 40 MG DISPERSABLE TABLET ONE (04:38)
[2020-11-01] MEDS: LORazepam 0.5 MG TABLET PO SCH ×4 (05:48→22:44)
[2020-11-01] MEDS: methaDONE 80 MG, methaDONE 10 MG PO SCH (05:48)
[2020-11-01] MEDS: PRENATAL VITAMINS W/ FOLIC ACID TABLET (FP) PO SCH (10:15)
[2020-11-01] MEDS: hydrOXYzine PAMOATE 25 MG CAPSULE (FP) PO PRN (10:15)
[2020-11-01 18:43] VITALS: TEMP 97.6
[2020-11-01] MEDS: MELATONIN 5 MG TABLETS PO SCH (22:44)
[2020-11-01] MEDS: THIAMINE HCL 100 MG TABLET (FP) PO SCH (22:44)
[2020-11-02] MEDS ORDERED: methaDONE HCL 10 MG TABLET ONE (04:27)
[2020-11-02] MEDS ORDERED: methaDONE HCL 40 MG DISPERSABLE TABLET ONE (04:27)
[2020-11-02] MEDS ORDERED: LORazepam 0.5 MG TABLET PO ONE (05:00)
[2020-11-02] MEDS: methaDONE 80 MG, methaDONE 10 MG PO SCH (05:43)
[2020-11-02 06:27] VITALS: PULSE 63
[2020-11-02 09:26] VITALS: BP 104/74
[2020-11-02] MEDS: PRENATAL VITAMINS W/ FOLIC ACID TABLET (FP) PO SCH (10:03)
[2020-11-02] MEDS: hydrOXYzine PAMOATE 25 MG CAPSULE (FP) PO PRN (10:04)
== END 2020-11-02 11:46 | disposition other institution (70) | DRG 773 ==
LOC: YASAS 08:20 → Y6N 13:11 → Y3N 22:06
PROVIDERS: ADMIT Allergy & Immunology; ATTEND Allergy & Immunology
PROC: HZ2ZZZZ Detoxification Services for Substance Abuse Treatment (ICD-10-PCS; principal; 2020-10-29)
DX: F10.230 Alcohol dependence with withdrawal, uncomplicated (principal); F11.20 Opioid dependence, uncomplicated; F14.20 Cocaine dependence, uncomplicated; F13.20 Sedative, hypnotic or anxiolytic dependence, uncomplicated; F12.20 Cannabis dependence, uncomplicated; F17.210 Nicotine dependence, cigarettes, uncomplicated; F25.9 Schizoaffective disorder, unspecified; F31.9 Bipolar disorder, unspecified; F41.9 Anxiety disorder, unspecified; B18.2 Chronic viral hepatitis C
CPT/HCPCS: 36415; 80053; 85027; 86780; 87389; C9803; U0003; U0005

== ENCOUNTER 2020-11-02 11:47 | Inpatient (IN) | payer OTHER ==
[2020-11-02] MEDS ORDERED: MAGNESIUM CITRATE 300 ML BOTTLE PO PRN (12:50)
[2020-11-02] MEDS ORDERED: P-EPHED 60MG/TRIPROLIDI 2.5MG TABLET PO PRN (12:50)
[2020-11-02] MEDS ORDERED: MAG HYDROX/AL HYDROX/SIMETH 30 ML UNIT-DOSE CUP PO PRN (12:50)
[2020-11-02] MEDS ORDERED: MENTHOL/PHENOL 1 EACH UD MM PRN (12:50)
[2020-11-02] MEDS ORDERED: MAGNESIUM HYDROX 2400MG/30ML ORAL SUSPENSION 30 ML CUP PO PRN (12:50)
[2020-11-02] MEDS ORDERED: IBUPROFEN 400 MG TABLET (FP) PO PRN (12:50)
[2020-11-02] MEDS ORDERED: LOPERAMIDE HCL 2 MG CAPSULE PO PRN (12:50)
[2020-11-02] MEDS ORDERED: guaiFENesin 200 MG/10 ML 10 ML UNIT-DOSE CUPS PO PRN (12:50)
[2020-11-02] MEDS ORDERED: ACETAMINOPHEN 325 MG TABLET (FP) PO PRN (12:50)
[2020-11-02] MEDS: THIAMINE HCL 100 MG TABLET (FP) PO SCH (21:02)
[2020-11-02] MEDS: MELATONIN 5 MG TABLETS PO SCH (21:02)
[2020-11-02] MEDS: NICOTINE POLACRILEX 2 MG GUM BUC PRN (23:05)
[2020-11-02] MEDS: hydrOXYzine PAMOATE 25 MG CAPSULE (FP) PO PRN (23:05)
[2020-11-02] MEDS ORDERED: PT OWN MED DRAWER 7, Y5N ONE (23:05)
[2020-11-03] MEDS ORDERED: methaDONE HCL 40 MG DISPERSABLE TABLET ONE (04:12)
[2020-11-03] MEDS ORDERED: methaDONE HCL 10 MG TABLET ONE (04:13)
[2020-11-03] MEDS: methaDONE 80 MG, methaDONE 10 MG PO SCH (05:51)
[2020-11-03] MEDS ORDERED: methaDONE HCL 10 MG TABLET PO SCH (06:00)
[2020-11-03] MEDS: hydrOXYzine PAMOATE 25 MG CAPSULE (FP) PO PRN ×2 (06:50→21:48)
[2020-11-03] MEDS: PRENATAL VITAMINS W/ FOLIC ACID TABLET (FP) PO SCH (09:38)
[2020-11-03] MEDS: NICOTINE POLACRILEX 2 MG GUM BUC PRN (09:39)
[2020-11-03] MEDS: MELATONIN 5 MG TABLETS PO SCH (21:48)
[2020-11-03] MEDS: THIAMINE HCL 100 MG TABLET (FP) PO SCH (21:49)
[2020-11-04] MEDS: hydrOXYzine PAMOATE 25 MG CAPSULE (FP) PO PRN ×3 (03:06→21:03)
[2020-11-04] MEDS ORDERED: methaDONE HCL 40 MG DISPERSABLE TABLET ONE (03:17)
[2020-11-04] MEDS ORDERED: methaDONE HCL 10 MG TABLET ONE (03:17)
[2020-11-04] MEDS: methaDONE 80 MG, methaDONE 10 MG PO SCH (05:54)
[2020-11-04] MEDS: PRENATAL VITAMINS W/ FOLIC ACID TABLET (FP) PO SCH (10:17)
[2020-11-04] MEDS: NICOTINE POLACRILEX 2 MG GUM BUC PRN (10:17)
[2020-11-04] MEDS: MELATONIN 5 MG TABLETS PO SCH (21:03)
[2020-11-04] MEDS: THIAMINE HCL 100 MG TABLET (FP) PO SCH (21:04)
[2020-11-04] MEDS: NICOTINE 10 MG CARTRIDGE (INHALER) IH PRN (23:37)
[2020-11-05] MEDS ORDERED: methaDONE HCL 40 MG DISPERSABLE TABLET ONE (03:05)
[2020-11-05] MEDS ORDERED: methaDONE HCL 10 MG TABLET ONE (03:05)
[2020-11-05] MEDS: methaDONE 80 MG, methaDONE 10 MG PO SCH (06:17)
[2020-11-05] MEDS: hydrOXYzine PAMOATE 25 MG CAPSULE (FP) PO PRN (10:37)
[2020-11-05] MEDS: PRENATAL VITAMINS W/ FOLIC ACID TABLET (FP) PO SCH (10:37)
[2020-11-05] MEDS: NICOTINE 10 MG CARTRIDGE (INHALER) IH PRN (12:48)
[2020-11-05] MEDS: MELATONIN 5 MG TABLETS PO SCH (21:19)
[2020-11-05] MEDS: THIAMINE HCL 100 MG TABLET (FP) PO SCH (21:19)
[2020-11-05] MEDS: GABAPENTIN 400 MG CAPSULE PO SCH (21:20)
[2020-11-05] MEDS: SUVOREXANT 10 MG TABLET PO PRN (21:20)
[2020-11-06] MEDS ORDERED: methaDONE HCL 40 MG DISPERSABLE TABLET ONE (03:07)
[2020-11-06] MEDS ORDERED: methaDONE HCL 10 MG TABLET ONE (03:07)
[2020-11-06] MEDS: methaDONE 80 MG, methaDONE 10 MG PO SCH (06:22)
[2020-11-06] MEDS: hydrOXYzine PAMOATE 25 MG CAPSULE (FP) PO PRN ×2 (09:55→14:20)
[2020-11-06] MEDS: GABAPENTIN 400 MG CAPSULE PO SCH ×2 (09:55→21:18)
[2020-11-06] MEDS: PRENATAL VITAMINS W/ FOLIC ACID TABLET (FP) PO SCH (09:56)
[2020-11-06] MEDS ORDERED: SODIUM PHOSPHATE/NA BIPHOS 133 ML ENEMA PR ONE (15:07)
[2020-11-06] MEDS: THIAMINE HCL 100 MG TABLET (FP) PO SCH (21:18)
[2020-11-06] MEDS: MELATONIN 5 MG TABLETS PO SCH (21:18)
[2020-11-06] MEDS: SUVOREXANT 10 MG TABLET PO PRN (21:19)
[2020-11-07] MEDS ORDERED: methaDONE HCL 10 MG TABLET ONE (03:06)
[2020-11-07] MEDS ORDERED: methaDONE HCL 40 MG DISPERSABLE TABLET ONE (03:06)
[2020-11-07] MEDS: methaDONE 80 MG, methaDONE 10 MG PO SCH (06:08)
[2020-11-07] MEDS: GABAPENTIN 400 MG CAPSULE PO SCH ×2 (09:41→21:12)
[2020-11-07] MEDS: PRENATAL VITAMINS W/ FOLIC ACID TABLET (FP) PO SCH (09:41)
[2020-11-07] MEDS: hydrOXYzine PAMOATE 25 MG CAPSULE (FP) PO PRN (09:42)
[2020-11-07] MEDS: THIAMINE HCL 100 MG TABLET (FP) PO SCH (21:12)
[2020-11-07] MEDS: SUVOREXANT 10 MG TABLET PO PRN (21:12)
[2020-11-07] MEDS: MELATONIN 5 MG TABLETS PO SCH (21:12)
[2020-11-08] MEDS ORDERED: methaDONE HCL 40 MG DISPERSABLE TABLET ONE (03:07)
[2020-11-08] MEDS ORDERED: methaDONE HCL 10 MG TABLET ONE (03:07)
[2020-11-08] MEDS: methaDONE 80 MG, methaDONE 10 MG PO SCH (06:19)
[2020-11-08] MEDS: GABAPENTIN 400 MG CAPSULE PO SCH ×2 (10:05→21:13)
[2020-11-08] MEDS: PRENATAL VITAMINS W/ FOLIC ACID TABLET (FP) PO SCH (10:05)
[2020-11-08] MEDS: NICOTINE 10 MG CARTRIDGE (INHALER) IH PRN (10:21)
[2020-11-08] MEDS: THIAMINE HCL 100 MG TABLET (FP) PO SCH (21:14)
[2020-11-08] MEDS: MELATONIN 5 MG TABLETS PO SCH (21:14)
[2020-11-09] MEDS ORDERED: methaDONE HCL 40 MG DISPERSABLE TABLET ONE (03:53)
[2020-11-09] MEDS ORDERED: methaDONE HCL 10 MG TABLET ONE (03:53)
[2020-11-09] MEDS: methaDONE 80 MG, methaDONE 10 MG PO SCH (06:07)
[2020-11-09] MEDS: NICOTINE 10 MG CARTRIDGE (INHALER) IH PRN (06:08)
[2020-11-09] MEDS: PRENATAL VITAMINS W/ FOLIC ACID TABLET (FP) PO SCH (09:52)
[2020-11-09] MEDS: GABAPENTIN 400 MG CAPSULE PO SCH ×2 (09:52→21:21)
[2020-11-09] MEDS: SUVOREXANT 10 MG TABLET PO PRN (21:21)
[2020-11-09] MEDS: THIAMINE HCL 100 MG TABLET (FP) PO SCH (21:22)
[2020-11-09] MEDS: MELATONIN 5 MG TABLETS PO SCH (21:22)
[2020-11-10] MEDS ORDERED: methaDONE HCL 40 MG DISPERSABLE TABLET ONE (02:57)
[2020-11-10] MEDS ORDERED: methaDONE HCL 10 MG TABLET ONE (02:57)
[2020-11-10] MEDS: methaDONE 80 MG, methaDONE 10 MG PO SCH (06:06)
[2020-11-10] MEDS: PRENATAL VITAMINS W/ FOLIC ACID TABLET (FP) PO SCH (09:59)
[2020-11-10] MEDS: GABAPENTIN 400 MG CAPSULE PO SCH ×2 (09:59→21:17)
[2020-11-10] MEDS: THIAMINE HCL 100 MG TABLET (FP) PO SCH (21:17)
[2020-11-10] MEDS: MELATONIN 5 MG TABLETS PO SCH (21:17)
[2020-11-10] MEDS: SUVOREXANT 10 MG TABLET PO PRN (21:19)
[2020-11-11] MEDS ORDERED: methaDONE HCL 10 MG TABLET ONE (03:00)
[2020-11-11] MEDS ORDERED: methaDONE HCL 40 MG DISPERSABLE TABLET ONE (03:00)
[2020-11-11] MEDS: methaDONE 80 MG, methaDONE 10 MG PO SCH (06:01)
[2020-11-11] MEDS: GABAPENTIN 400 MG CAPSULE PO SCH ×2 (09:39→21:33)
[2020-11-11] MEDS: PRENATAL VITAMINS W/ FOLIC ACID TABLET (FP) PO SCH (09:39)
[2020-11-11] MEDS: MELATONIN 5 MG TABLETS PO SCH (21:33)
[2020-11-11] MEDS: SUVOREXANT 10 MG TABLET PO PRN (21:33)
[2020-11-11] MEDS: THIAMINE HCL 100 MG TABLET (FP) PO SCH (21:34)
[2020-11-12] MEDS ORDERED: methaDONE HCL 40 MG DISPERSABLE TABLET ONE (03:02)
[2020-11-12] MEDS ORDERED: methaDONE HCL 10 MG TABLET ONE (03:02)
[2020-11-12] MEDS: methaDONE 80 MG, methaDONE 10 MG PO SCH (06:15)
[2020-11-12] MEDS: GABAPENTIN 400 MG CAPSULE PO SCH ×2 (10:08→21:19)
[2020-11-12] MEDS: PRENATAL VITAMINS W/ FOLIC ACID TABLET (FP) PO SCH (10:08)
[2020-11-12] MEDS: NICOTINE 10 MG CARTRIDGE (INHALER) IH PRN (13:12)
[2020-11-12] MEDS: TOLNAFTATE 1% CREAM 15 GM TUBE TP SCH ×2 (13:13→21:19)
[2020-11-12] MEDS ORDERED: PT OWN MED DRAWER 7, Y5N ONE (13:42)
[2020-11-12] MEDS: MELATONIN 5 MG TABLETS PO SCH (21:19)
[2020-11-12] MEDS: SUVOREXANT 10 MG TABLET PO PRN (21:20)
[2020-11-12] MEDS: THIAMINE HCL 100 MG TABLET (FP) PO SCH (21:21)
[2020-11-13] MEDS ORDERED: methaDONE HCL 10 MG TABLET ONE (03:03)
[2020-11-13] MEDS ORDERED: methaDONE HCL 40 MG DISPERSABLE TABLET ONE (03:03)
[2020-11-13] MEDS: methaDONE 80 MG, methaDONE 10 MG PO SCH (05:39)
[2020-11-13] MEDS: NICOTINE 10 MG CARTRIDGE (INHALER) IH PRN ×2 (06:52→18:22)
[2020-11-13] MEDS: GABAPENTIN 400 MG CAPSULE PO SCH ×3 (10:21→21:26)
[2020-11-13] MEDS: TOLNAFTATE 1% CREAM 15 GM TUBE TP SCH ×2 (10:21→21:26)
[2020-11-13] MEDS: PRENATAL VITAMINS W/ FOLIC ACID TABLET (FP) PO SCH (10:21)
[2020-11-13] MEDS: NICOTINE POLACRILEX 2 MG GUM BUC PRN (10:48)
[2020-11-13] MEDS: MELATONIN 5 MG TABLETS PO SCH (21:25)
[2020-11-13] MEDS: SUVOREXANT 10 MG TABLET PO PRN (21:25)
[2020-11-13] MEDS: THIAMINE HCL 100 MG TABLET (FP) PO SCH (21:25)
[2020-11-14] MEDS ORDERED: methaDONE HCL 10 MG TABLET ONE (03:01)
[2020-11-14] MEDS ORDERED: methaDONE HCL 40 MG DISPERSABLE TABLET ONE (03:01)
[2020-11-14] MEDS: methaDONE 80 MG, methaDONE 10 MG PO SCH (05:54)
[2020-11-14] MEDS: NICOTINE POLACRILEX 2 MG GUM BUC PRN (07:25)
[2020-11-14 08:07] VITALS: BP 115/77; PULSE 66; TEMP 95
[2020-11-14] MEDS: PRENATAL VITAMINS W/ FOLIC ACID TABLET (FP) PO SCH (09:17)
[2020-11-14] MEDS: GABAPENTIN 400 MG CAPSULE PO SCH (09:17)
[2020-11-14] MEDS: TOLNAFTATE 1% CREAM 15 GM TUBE TP SCH (09:18)
== END 2020-11-14 09:30 | disposition home or self-care (01) | DRG 772 ==
LOC: YASAS 11:47 → Y3W 11:48
PROVIDERS: ADMIT Allergy & Immunology; ATTEND Allergy & Immunology
PROC: HZ42ZZZ Group Counseling for Substance Abuse Treatment, Cognitive-Behavioral (ICD-10-PCS; principal; 2020-11-02)
DX: F10.20 Alcohol dependence, uncomplicated (principal); F11.20 Opioid dependence, uncomplicated; F14.20 Cocaine dependence, uncomplicated; F13.20 Sedative, hypnotic or anxiolytic dependence, uncomplicated; F12.20 Cannabis dependence, uncomplicated; F17.210 Nicotine dependence, cigarettes, uncomplicated; F19.280 Other psychoactive substance dependence with psychoactive substance-induced anxiety disorder; F19.282 Other psychoactive substance dependence with psychoactive substance-induced sleep disorder; F19.24 Other psychoactive substance dependence with psychoactive substance-induced mood disorder; F25.9 Schizoaffective disorder, unspecified; F43.10 Post-traumatic stress disorder, unspecified; F41.9 Anxiety disorder, unspecified; K59.00 Constipation, unspecified; G40.89 Other seizures